=== PATIENT | female | born 1980 ===

== ENCOUNTER 2022-11-06 15:03 | Emergency (ER) | payer OTHER, SELFPAY ==
[2022-11-06 15:17] VITALS: BP 131/91; PULSE 69; RESP 16; TEMP 37.1; O2SAT 99
--- NOTE | 2022-11-06 16:02 | ED.GENADUL_ITS ---
Discharge Plan Disposition Patient Disposition: Home Discharge Details Clinical Impression: Headache Primary Care Provider: None,None ED Provider: Vidya Logan Discharge Instructions Instructions: General Headache (ED) Additional Instructions: Can use [id number] ibuprofen and/or acetaminophen as directed for your symptoms. Continue to push fluids drinking 6 to 8 glasses of water to stay well-hydrated Referrals: None,None [Primary Care Provider] - (See your primary care provider if needed for follow-up or return sooner to the emergency department for new or worsening symptoms) Discharge Data Discharge Date/Time-TO BE ENTERED AT DEPARTURE: 11/06/22 17:08 Medical Decision Making Patient with headache onset yesterday has not taken any medication for it today there is no thunderclap no fever no nuchal rigidity. We will obtain IV access give 1 L of normal saline 15 mg IV ketorolac and 2.5 mg IV droperidol. Patient has complete resolution of her symptoms after the above treatment. She is requesting discharge to home hemodynamically she has remained stable able to tolerate p.o. well Medical Records Medical records reviewed: Yes I reviewed the patient's medical records. HPI General Mode of arrival: ambulatory . Date/Time Provider Initiated Documentation: 11/06/22 15:08 . Limitations to Documentation: language barrier . Information obtained by: patient . 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 Patient reports she has been in her usual state of health up until yesterday when she developed a right sided headache. She states that she did take Aleve yesterday with no relief of her symptoms. She does have some nausea but has been able to tolerate some oral intake. She has had no vomiting or abdominal pain she has had no fever neck stiffness or visual disturbance. She denies any trauma. She states she has no prescription medication no drug allergies no past medical history other than 10 years ago had right-sided facial numbness. She was evaluated and denies any diagnosis associated with it she said it did resolve spontaneously. She works at the [employer] locally. Related Data Allergies Allergy/AdvReac Type Severity Reaction Status Date / Time No Known Allergies Allergy Unverified 11/06/22 15:24 General Stated Complaint: Headache PADILLA: 3 Review of Systems All systems reviewed & are unremarkable except as noted in HPI and below PFSH All Active Problems (Updated 11/06/22 @ 16:57 by Vidya Logan NP) Headache (Acute) Social History Smoking/Tobacco Use Status: Never Smoking risk assessment performed?: Yes Alcohol Intake: never Substance use type: does not use Exam Const General: cooperative and no acute distress Nutritional Appearance: average body habitus Orientation: alert, awake and oriented x3 HENMT Head: normal to inspection, normocephalic and atraumatic Face and sinus: normal facial exam and face symmetric Mouth: oral mucosae normal Chest Chest: normal inspection of the chest Resp Effort & Inspection: normal respiratory effort Cardio Rate: regular rate Rhythm: regular rhythm GI Inspection: normal to inspection Palpation: soft Auscultation: normal bowel sounds Skin General skin exam: no rashes or lesions noted Neuro General: patient alert, patient awake, patient oriented x3 and no focal motor deficits Cognition: normal cognition Speech: speech normal Gait: normal gait Course Vital Signs Vital signs: Vital Signs Temperature 37.1 C 11/06/22 15:17 Pulse 69 11/06/22 15:17 Respiratory Rate 16 11/06/22 15:17 Blood Pressure 131/91 H 11/06/22 15:17 Pulse Oximetry 99 11/06/22 15:17 Temperature 37.1 C 11/06/22 15:17 Temperature Source Oral 11/06/22 15:17 Pulse 69 11/06/22 15:17 Respiratory Rate 16 11/06/22 15:17 Respiratory Effort Normal, Non-Labored 11/06/22 16:00 Blood Pressure 131/91 H 11/06/22 15:17 Blood Pressure Position Sitting 11/06/22 15:17 Pulse Oximetry 99 11/06/22 15:17
[2022-11-06] MEDS: Droperidol 5 MG/2 ML VIAL 2.5 MG IVP (16:15)
[2022-11-06] MEDS: Normal Saline 1,000 ML 1000 ML IV (16:16)
[2022-11-06] MEDS: Ketorolac 15 MG/ML VIAL IVP (16:16)
--- NOTE | 2022-11-06 16:55 | NUR.NOTE ---
pt notes improvement in headache pain. [employer] FOUNDER AND CHIEF STRATEGY OFFICER aware
[2022-11-06 17:08] VITALS: BP 129/86; PULSE 83; RESP 18; O2SAT 99
--- NOTE | 2022-11-06 17:09 | NUR.NOTE ---
discharged using java oracle developer
== END 2022-11-06 17:08 | disposition home or self-care (01) ==
PROVIDERS: Emergency Provider Nurse Practitioner Acute Care
DX: R51.9 Headache, unspecified (principal)
CPT/HCPCS: 36415; 96361; 96374; 96375; 99284; J1790; J1885